=== PATIENT | male | born 1990 | race Caucasian/White ===

== ENCOUNTER 2022-01-09 12:26 | Emergency (ER) | payer MEDICAID ==
[~2022-01-09] VITALS: Ht 185.4 cm; Wt 140.6 kg
[2022-01-09 12:37] VITALS: BP_SYST 165
--- NOTE | 2022-01-09 12:44 | NUR ---
Patient to ER bed yaya ferrer for evaluation. Side rails up. Report given to 4.
--- NOTE | 2022-01-09 12:45 | NUR ---
RECEIVED PT FROM UDAY BURKETT. PT HAS C/O LLE REDNESS, INCREASED WARMTH, AND SWELLING. PT STATES NO INJURY OCCURED TO SITE. PT HAS NO SIGNIFICANT PAST MEDICAL HX. AAO4, RESP E/U. ON R/A. NO COUGH OR SOB. ABDOMEN ROUND, OBESE, NONTENDER, NONDISTENDED. BOWEL SOUNDS ACTIVE X4. DENIES N/V/D/C. SKIN CDI, WITH TRACE EDEMA. IV CATH 20 STARTED TO LAC. SITE WNL. PT AMBULATORY. SIDERAILS UP X 2. DENIES PAIN.
[2022-01-09] MEDS ORDERED: SULFAMETHOXAZOLE/TRIMETHOPR DS 1 TABLET PO ONE (13:00)
[2022-01-09] MEDS ORDERED: IBUP-1970 PO (13:11)
[2022-01-09] MEDS ORDERED: SULF1TAB48 PO (13:11)
[2022-01-09 13:26] LABS: BASOPHILS # (AUTO) 0.1 K/uL (0.0-0.2); BASOPHILS % (AUTO) 1.4 % (0.0-2.0); EOSINOPHILS # (AUTO) 0.4 K/uL (0.0-0.4); HEMATOCRIT 41.9 % (36-54); HEMOGLOBIN 14.3 g/dL (14.0-18.0); LYMPHOCYTES # (AUTO) 2.1 K/uL (1.0-5.5); MEAN CORPUSCULAR HEMOGLOBIN 29 pg (27-31); MEAN CORPUSCULAR HGB CONC 34 % (32-36); MEAN CORPUSCULAR VOLUME 86 fL (79.0-98.0); MONOCYTES # (AUTO) 0.5 K/uL (0.0-1.0); MONOCYTES % (AUTO) 6.7 % (1.7-9.3); NEUTROPHILS # (AUTO) 5.1 K/uL (1.8-7.7); NEUTROPHILS % (AUTO) 61.9 % (40.0-70.0); PLATELET COUNT (AUTO) 213 K/uL (130-430); RED BLOOD CELL COUNT(AUTO) 4.87 MIL/uL (4.2-6.2); RED CELL DISTRIBUTION WIDTH 13.8 % (9.0-15.0); WHITE BLOOD COUNT (AUTO) 8.3 K/uL (4.8-10.8)
[2022-01-09 13:41] LABS: CALCIUM 8.8 mg/dL (8.4-11.0); CREATININE 0.86 mg/dL (0.55-1.30); POTASSIUM 4.2 mmol/L (3.5-5.1)
[2022-01-09 13:47] LABS: TOTAL BILIRUBIN 0.3 mg/dL (0.0-1.0)
--- NOTE | 2022-01-09 14:36 | NUR ---
PT MOVED TO CHAIR IN HALLWAY, TOLERATED WELL
[2022-01-09] MEDS ORDERED: VANCOMYCIN HCL 1,000 MG in NS 250 ML IV ONE (14:45)
[2022-01-09] MEDS ORDERED: VANCOMYCIN HCL 1000 MG/VIAL IV ONE (15:22)
[2022-01-09] MEDS ORDERED: CEPH-548 PO (17:20)
[2022-01-09 17:29] VITALS: BP_SYST 165
--- NOTE | 2022-01-09 17:30 | NUR ---
Patient given written and verbal discharge instructions and verbalizes understanding. ER MD discussed with patient the results and treatment provided. Patient in stable condition. ID arm band removed. IV catheter removed intact and dressing applied, no active bleeding. Rx of CEPHALEXIN, BACTRIM AND IBUPROFEN given. Patient educated on pain management and to follow up with PMD. Pain Scale 0/10. Opportunity for questions provided and answered. Medication side effect fact sheet provided.
== END 2022-01-09 17:29 | disposition home or self-care (01) ==
LOC: SED 12:26
DX: L03.115 Cellulitis of right lower limb (principal); R22.41 Localized swelling, mass and lump, right lower limb; I10 Essential (primary) hypertension; Z79.899 Other long term (current) drug therapy
CPT/HCPCS: 99284; 96365; 93971; 96366; 80053; 85025; 87040; 36415; 83605; J3370